=== PATIENT | female | born 1990 | race Caucasian/White ===

== ENCOUNTER 2025-03-19 16:38 | Emergency (ER) | payer BC, SELFPAY ==
--- OUTSIDE RECORDS SUMMARY | 2025-03-05 20:45 | XMS_ITS | Encounter Summary ---
Author Organization [employer] Address [address] [place] [address] Care Team Providers Care Manager Combination Name Role Phone Jahaira Ag PA-C Primary Care Provider + [phone] Reason for Visit * Reason Comments Medication Questions Entered automatical ly based on patient selection in [employer]. Encounter Details Date Type Department Care Team (Late st Contact Info) Description 03/05/2025 8:45 PM CDT E-Visit [facility] [address] [place] [address] Suki Finney PA-C [id number] [place] [phone] Dx: Class 3 severe obesity due to excess calories without serious comorbidity with body mass index (BMI) of 40.0 to 44.9 in adult (Primary Dx) Social History Tobacco Use Types Packs/Day Years Used Date Smoking Tobacco: Former Cigarettes Smokeless Tobacco: Never Comments:Trying to quit only smoke 3 a day Alcohol Use Standard Drinks/Week Comments Not Currently 0 (1 standard drink = 0.6 oz pur e alcohol) Drink maybe once a year AUDIT-C Answer Date Recorded Q1: How often do you have a drink containing alc ohol? Never 01/04/2021 Average Number of Drinks Not on file 021 Frequency of Binge Drinking Not on file 12/20 PHQ-2 Answer Date Recorded PHQ-2 Score 1 05/10/2024 Financial Resource Strain Answer Date R ecorded Is it hard for you to pay fo r the very basics like food, housing, medical care or heating? No 08/10/2023 Food Insecurity Answer Date Recorded Does your food run out before you have the money to buy more? No 08/10/2023 Transportation Needs Answer Date Record ed Does a lack of transportatio n keep you from your medical appointments or from getting your medications? 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 Not on file Not on file documented as of this encounter Last Filed Vital Signs Vital Sign Reading Time Taken Comments Blood Pressure - - Pulse - - Temperature - - Respiratory Rate - - Oxygen Saturation - - Inhaled Oxygen Concentration - - Weight 86.6 kg (191 lb) 03/07/2025 4:14 PM CDT Height - - Body Mass Index 31.78 12/18/2024 4:25 PM CDT documented in this encounter Plan of Treatment Not on file documented as of this encounter Visit Diagnoses Diagnosis Class 3 severe obesity due to excess calories without serious comorbidity with body mass index (BMI) of 40.0 to 44.9 in adult- Primary documented in this encounter Care Teams Manager Combination Relationship Specialty Start Date End Date Jahaira Ag, [address] [address] [place] [address] PCP - General Physician Review Manager 10/31/19 documented as of this encounter
--- OUTSIDE RECORDS SUMMARY | 2025-03-19 16:40 | XMS_ITS | Continuity of Care Document ---
Author Name [facility] Organization [facility] Care Team Providers Care Research Subject Name Role Phone [facility] Unavailable Unavailable Social History Combined list of available smoking, tobacco, and other social history from Department of Defense and Veterans Affairs facilities. Social History Type Response Date Comment Sourc e This section is an empty social history section. DoD
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
--- OUTSIDE RECORDS SUMMARY | 2025-03-19 16:40 | XMS_ITS | Continuity of Care Document ---
Author Name [facility] Organization [facility] Care Team Providers Care Marine Design Engineer Name Role Phone [facility] Unavailable Unavailable Social History Combined list of available smoking, tobacco, and other social history from Department of Defense and Veterans Affairs facilities. Social History Type Response Date Comment Sourc e This section is an empty social history section. DoD
--- OUTSIDE RECORDS SUMMARY | 2025-03-19 16:40 | XMS_ITS | Clinical Summary ---
Author Organization [employer] [facility] Address [address] [place] [id number] Care Team Providers Care Gluing Pressman Name Role Phone Pcp, No Unavailable Unavailable Jahaira Ag Primary Care Provider [phone] Allergies Active Allergy Reactions Criticality Noted Date Comments Oxycodone-Acetaminophen Itching 01/31/2019 Medications levonorgestrel intrauterine device (MIRENA) 20 mcg/24 hours (7 yrs) 52 mg IUD Inject 1 Each intrauterine. 1 026 Active methylPREDNISolone (Medrol, Talib,) 4 mg tabletIndications: Acute pain of left knee,Knee strain, left, initial encounter Take by mouth as instructed per packaging. 21 Tablet 1 Active albuterol HFA (PRO-AIR; VENTOLIN; PROVENTIL) 90 mcg/actuation inhalerIndications :Bronchitis Inhale 1-2 Puffs by mouth every 4 hours if needed for Shortness of Breath 1st choice or Wheezing. 1 Each 3 Active inhalational spacing deviceIndications: Bronchitis For home use. 1 Each 3 Active ondansetron (ZOFRAN ODT) 8 mg disintegrating tabletIndications: Nausea Place 1 Tablet (8 mg) on the tongue every 8 hours if needed for Nausea/Vomitin g. 5 Tablet 3 Active benzonatate (TESSALON) 200 mg capsuleIndications :Bronchitis Take 1 Capsule (200 mg) by mouth 3 times daily if needed for Cough. 21 Capsule Active Active Problems Problem Noted Date Diagnosed Date Smoker 01/31/2019 Immunizations Immunization Administration Dates Next Due Hepatitis B (Adult) 12/24/2011 Tuberculin (PPD) 12/24/2011 Social History Tobacco Use Types Packs/Day Years Used Date Smoking Tobacco: Some Days Smokeless Tobacco: Never Tobacco Cessation:Ready to Q uit: Yes; Counseling Given: Yes Comments:trying to quit Alcohol Use Standard Drinks/Week Comments Never 0 (1 standard drink = 0.6 oz pur e alcohol) Social Connections Answer Date Recorded Frequency of Communication with Friends and Fami ly Not on file 09/21/2021 Financial Resource Strain Answer Date R ecorded Difficulty of Paying Living Expenses Not on file 09/21/2021 Difficulty of Paying Living Expenses Not on file 09/21/2021 Comments No Sex and Gender Information Value Date Recorded Sex Assigned at Not on file Legal Sex Female 11:09 AM CDT Gender Identity Not on file Sexual Orientation Not on file Obstetrics History Last Filed Vital Signs Vital Sign Reading Time Taken Comments Blood Pressure 124/88 12/10/2022 8:07 AM CDT Pulse 104 12/10/2022 8:07 AM CDT Temperature 35.8 C (96.4 F) 12/10/2022 8:07 AM CDT Respiratory Rate 20 12/10/2022 8:07 AM CDT Oxygen Saturation 96% 12/10/2022 8:07 AM CDT Inhaled Oxygen Concentration - - Weight 104.3 kg (230 lb) 12/10/2022 8:07 AM CDT Height 165.1 cm (5' 5) 12/10/2022 8:07 AM CDT Body Mass Index 38.27 12/10/2022 8:07 AM CDT Plan of Treatment Health Maintenance Due Date Last Done Comments Tdap 02/12/2000 Depression screening for age 12+ 2001 HIV for age 15-65 02/12/2004 Hepatitis C screening for ag e 18-79 2007 Tetanus booster 2009 Pap test for age 21-65 2010 Hepatitis B series for 19+ ( 2 of 3 - 19+ 3-dose series) 01/21/2012 12/24/2011 BMI (ht and wt on same day) for age 18+ 12/11/2023 12/10/2022, 01/31/2019 COVID-19 vaccine series (2023- season) 2024 Influenza Vaccine (Season Ended) 2025 Pneumococcal series for age 6-49 Aged Out No longer eligible b ased on patient's age to complete this topic Insurance [facility] [place]ID [place] [employer] Care Teams Gluing Pressman Relationship Specialty [place] [address] [place] [address] PCP - General Physician Irrigation Manager 08/18/20 Pcp, No . 01/31/19
[2025-03-19 16:50] VITALS: BP 131/83; PULSE 82; RESP 18; TEMP 36.2; O2SAT 98; BMI 31.5
--- NOTE | 2025-03-19 17:20 | CRLHL7_ITS ---
For Patients: As a result of the Cures Act, medical imaging exams and procedure reports are released immediately into your electronic medical record. You may view this report before your referring provider. If you have questions, please contact your health care provider. Indication: Trauma. Technique: Left 2nd digit, 3 views. Comparison: None. Findings/Impression: Bones: Alignment is normal. No displaced fractures or bone lesions. Joint spaces: Unremarkable. Soft tissues: Focal soft tissue laceration. No radiopaque foreign bodies. Dictated by Jb Conner MD @ 03/19/2025 6:10:48 PM (Electronically Signed)
--- NOTE | 2025-03-19 17:27 | ED.GENADULT ---
HPI - General Adult General Chief complaint: Laceration/Wound Stated complaint: L hand LAC Time Seen by Provider: 03/19/25 16:59 Source: patient Mode of arrival: ambulatory Limitations: no limitations History of Present Illness HPI narrative: 35-year-old female presenting today with a laceration to the 2nd digit of the left hand. Patient grabbed loin trimmer when it was still on. She then went to sit down and when she sat down she felt lightheaded, her vision and hearing felt funny and she passed out. She believes she passed out for maybe 40 seconds. She stayed in the chair when this occurred, did not fall or hit her head. When she woke up she was still feeling lightheaded. After sitting in bed for a little bit of time, she does feel better. Per nursing she was looking kind of pale upon arrival, color has now returned to her face. Patient denies palpitations, headaches, previous recent syncopal episodes. Last Tdap in 2019. Related Data Home Medications ?Medication ?Instructions ?Recorded ?Confirmed ondansetron 8 mg disintegrating 4 - 8 mg PO nausea 03/19/25 tablet semaglutide (weight loss) 1 mg/0.5 1 mg subcut 03/19/25 mL subcutaneous pen injector (Wegovy) Allergies Allergy/AdvReac Type Severity Reaction Status Date / Time morphine Allergy Mild itching Verified 03/19/25 16:49 acetaminophen (From Percocet) Allergy itching Verified 03/19/25 16:49 oxycodone (From Percocet) Allergy itching Verified 03/19/25 16:49 Review of Systems Status of ROS: Reports: 10 or more systems reviewed and unremarkable except as noted in History and below Exam Narrative: Exam Narrative: Well-nourished well-developed patient in no acute distress. Alert and oriented. Answers questions appropriately. Mood and affect are appropriate. Thoughts are goal oriented and rational. No tangential or magical thinking noted. Patient speaks in full sentences without needing to catch her breath. HEENT: Normocephalic atraumatic. Pupils are equally round reactive to light. Extraocular muscles are intact. Conjunctivae are moist without any icterus noted. Moist mucous membranes. Patient has normal color. Extremities: Patient has a laceration on the palmar surface of the 2nd digit of the left hand, V shape with a small skin flap, edges of the skin are quite shredded. Const: Vital Signs, click to edit/add: Vital Signs - 24 hr 03/19/25 16:50 Temperature 97.2 F L Pulse Rate [Right Pulse Oximeter] 82 Respiratory Rate 18 Blood Pressure [Ri ght Upper Arm] 131/83 Pulse Oximetry 98 Oxygen Delivery Me thod Room Air Course Course ED Course: Because of her syncopal episode, she did have an EKG done arriving to the ED. Read by me, this shows normal sinus rhythm with sinus arrhythmia, pulse 70. Normal QRS, QTC and AL intervals. Patient had a lot of pain on examination, so a digital block was done with lidocaine and patient proceeded to x-ray. X-ray, read by me, is not show any acute fractures. Finger was soaked and cleaned in the usual sterile manner 4 sutures with 4-0 Ethilon were placed. Vital Signs Vital signs: Initial Vital Signs Temperature 97.2 F L 03/19/25 16:50 Temperature Source Temporal Artery Scan 03/19/25 16:50 Pulse Rate 82 03/19/25 16:50 Respiratory Rate 18 03/19/25 16:50 Blood Pressure 131/83 03/19/25 16:50 Blood Pressure Mean 99 03/19/25 16:50 Blood Pressure Position Sitting 03/19/25 16:50 Pulse Oximetry 98 03/19/25 16:50 Oxygen Delivery Method Room Air 03/19/25 16:50 Vital Signs Temperature 97.2 F L 03/19/25 16:50 Pulse Rate 82 03/19/25 16:50 Respiratory Rate 18 03/19/25 16:50 Blood Pressure 131/83 03/19/25 16:50 Pulse Oximetry 98 03/19/25 16:50 Oxygen Delivery Method Room Air 03/19/25 16:50 Temperature 97.2 F L 03/19/25 16:50 Pulse Rate 82 03/19/25 16:50 Respiratory Rate 18 03/19/25 16:50 Blood Pressure 131/83 03/19/25 16:50 Pulse Oximetry 98 03/19/25 16:50 Oxygen Delivery Method Room Air 03/19/25 16:50 Medical Decision Making MDM Narrative Medical decision making narrative: 35-year-old female laceration to the pointer finger. Treated per above. I do believe her syncopal episode was vasovagal due to the recent injury. No further workup needed. Discharge Plan Discharge Clinical Impression: Laceration Patient Disposition: Home, Self-Care Condition: Stable Additional Instructions: Keep wound clean and dry. Do not soak such as taking baths, swimming or doing dishes. Follow-up in approximately 1 week for suture removal with your primary care provider. Watch for signs and symptoms of infection including increasing redness of the area, purulent drainage, or fever. If this occurs follow-up right away with your doctor or return to the ER. Change dressing daily. Prescriptions: No Action ondansetron 8 mg tablet,disintegrating 4 - 8 mg PO Wegovy 1 mg/0.5 mL pen injector 1 mg subcut Stand Alone Forms: [employer] Info Instructions
--- OUTSIDE RECORDS SUMMARY | 2025-03-19 17:52 | XMS_ITS | Clinical Summary ---
Author Organization [facility] Address [address] [place] [address] Care Team Providers Care Merchant Miller Name Role Phone Jahaira Ag PA-C Primary Care Provider + [phone] Source Comments You are receiving this document as you are listed as the primary care provider,follow-up provider, or the patient has been referred to you for consultation.This is in compliance with the Medicare andMedicaid EHR Incentive Program,which states Providers who transition their patient to another setting of careor provider of care or refers their patient to another provider of care shouldprovide summary care record for each transition of care or referral. [facility] Allergies Active Allergy Reactions Criticality Noted Date Comments Morphine And Codeine Itching High 01/31/2019 Facial itching Oxycodone-Acetaminophen Itching High 07/25/2019 Facial itching Medications levonorgestrel (MIRENA) 20 MCG/24HR IUDIndications:En counter for insertion of intrauterine contraceptive device 1 Each by Intrauterine route continuous. 021 2025 Active ondansetron (ZOFRAN-ODT) 8 MG disintegrating tabletIndications :Nausea Take 0.5-1 Tablets (4-8 mg) by mouth as needed for Nausea. 30 Tablet 1 024 Active ALBUterol sulfate HFA 108 (90 Base) MCG/ACT inhaler Inhale 1-2 Puffs every 4 hours as needed for Wheezing. 1 Each 025 Active semaglutide-weigh t management (WEGOVY) 1 MG/0.5ML pen injectionIndicati ons:Class 3 severe obesity due to excess calories without serious comorbidity with body mass index (BMI) of 40.0 to 44.9 in adult Inject 0.5 mL (1 mg) subcutaneously once a week. 2 mL 5 025 Active semaglutide-weigh t management (WEGOVY) 0.5 MG/0.5ML pen injectionIndicati ons:Encounter for weight management,Class 3 severe obesity due to excess calories without serious comorbidity with body mass index (BMI) of 40.0 to 44.9 in adult Inject 0.5 mL (0.5 mg) subcutaneously once a week. 2 mL 5 025 2024 Discontinued Active Problems Problem Noted Date Diagnosed Date Encounter for weight management 05/10/2024 Class 3 severe obesity due t o excess calories without serious comorbidity with body mass index (BMI) of 40.0 to 44.9 in adult 03/18/2023 Cervical high risk HPV (human papillomavirus) te st positive 11/24/2019 Overview (06/28/2024): From visit on 11/03/19: History of abnormal pap tests? No. CCSM Review: History: 2020: NILM HPV+ (non 16/18) 2023 ASCUS; HPV positive for HPV High Risk Other Than 16/18 34 y.o. Plan: COLP Resolved Problems Problem Noted Date Diagnosed Date Resolved Date Tobacco abuse 11/05/2012 05/10/2024 Encounters Date Type Department Care Team Description 03/05/2025 8:45 PM CDT E-Visit [facility] [address] [place] [phone] Suki Finney PA-C Dx: Class 3 severe obesity due to excess calories without serious comorbidity with body mass index (BMI) of 40.0 to 44.9 in adult (Primary Dx) 01/27/2025 8:40 AM CDT [facility] [place] [id number] [place] [phone] Yessy Irwin APRN, FISHER NET Vaginal itching (Primary Dx) 01/12/2025 1:00 PM CDT E-Visit [facility] [address] [place] [phone] Zina Diggs PA-C Chief Comp: QUESTIONS, GENERAL 01/12/2025 10:30 AM CDT Office Visit [facility] [address] [place] [phone] Zina Diggs PA-C Sternoclavicular joint strain, subsequent encounter (Primary Dx); Acute pain of left shoulder; Worker's compensation claim administrative problem 01/04/2025 Telephone [facility] [address] [place] [phone] Zina Diggs PA-C Orders Needed 12/29/2024 6:10 PM CDT E-Visit [facility] [address] [place] [phone] Suki Finney PA-C Chief Comp: Forms/Letter 12/29/2024 10:15 AM CDT Office Visit [facility] [address] [place] [phone] Zina Diggs PA-C Sternoclavicular joint strain, subsequent encounter (Primary Dx); Acute pain of left shoulder; Worker's compensation claim administrative problem 12/28/2024 Telephone [facility] [address] [place] [phone] Suki Finney PA-C Prior Authorization For Medication (semaglutide-weight management (WEGOVY) 0.5 MG/0.5ML pen injection) 12/27/2024 10:30 AM CDT Ancillary Procedure [facility] [id number] [address] [place] [phone] Zina Diggs PA-C Injury of left clavicle, initial encounter; Worker's compensation claim administrative problem 12/22/2024 10:45 AM CDT Office Visit [facility] [address] [place] [phone] Zina Diggs PA-C Injury of left clavicle, initial encounter (Primary Dx); Acute pain of left shoulder; Worker's compensation claim administrative problem 12/22/2024 Telephone [facility] [address] [place] [phone] Zina Diggs PA-C Prior Authorization Request (Work comp ) 12/22/[address] [phone] Suki Finney PA-C Refill (semaglutide-weight management (WEGOVY) 0.5 MG/0.5ML pen injection) 12/18/2024 4:50 PM CDT Ancillary Procedure Radiology at [address] [phone] Paula Krause PA-C Encounter related to worker's compensation claim; Acute pain of left shoulder 12/18/2024 4:45 PM CDT Ancillary Procedure Radiology at [address] [phone] Paula Krause PA-C Encounter related to worker's compensation claim; Clavicle pain 12/18/2024 4:20 PM CDT Office Visit [address] [phone] Paula Krause PA-C Encounter related to worker's compensation claim (Primary Dx); Clavicle pain; Acute pain of left shoulder 12/18/2024 Results Follow-Up [address] [phone] Paula Krause PA-C from Last 3 Months Immunizations Immunization Administration Dates Next Due 9vHPV (Gardasil 9) 01/04/2021 HepB Adult (Engerix-B, 20+ yrs, 3 dose series) 0 12/24/2011 HepB Adult (Heplisav-B, 19+ yrs, 2 dose series) 08/11/2023 Influenza (Flucelvax), Preserv Free QIV 08/11/20 23 PCV20 ([id number]) 08/11/2023 Tdap 11/03/2019,04/22/2012 Family History Medical History Relation Name Comments High Cholesterol Father Dakota Barron Cancer Mother Haylee Barron Cancer, Breast Mother Haylee Barron Age 51, sti ll in treatment Stroke Mother Haylee Barron Depression Brother Buck Gordon No Known Problems Daughter Otto Diabetes, Type II Maternal Grandfather Angel Gordon Heart Disease Maternal Grandfather Angel Gordon CHF Hypertension Maternal Grandfather Angel Gordon Alzheimer's Maternal Grandmother COPD Maternal Grandmother Diabetes Paternal Grandfather Angel Gordon Heart Disease Paternal Grandfather Angel Gordon High Cholesterol Paternal Grandfather Angel Gordon Hypertension Paternal Grandfather Angel Gordon Stroke Paternal Grandfather Angel Gordon No Known Problems Paternal Grandmother Relation Name Status Comments Father Dakota Barron Alive Mother Haylee Barron Alive breast cancer Brother Buck Gordon Alive Daughter [place] Alive Maternal Grandfather Angel Gordon Maternal Grandmother Paternal Grandfather Angel Gordon Paternal Grandmother Alive Social History Tobacco Use Types Packs/Day Years Used Date Smoking Tobacco: Former Cigarettes Smokeless Tobacco: Never Tobacco Cessation:Counseling Given: Not Answered Comments:Trying to quit only smoke 3 a [...] on file 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 Gender Identity Not on file Sexual Orientation Not on file 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 Not on file Not on file Last Filed Vital Signs Vital Sign Reading Time Taken Comments Blood Pressure 108/54 01/27/2025 8:05 AM CDT Pulse 75 01/27/2025 8:05 AM CDT Temperature 36.9 C (98.4 F) 01/27/2025 8:05 AM CDT Respiratory Rate 20 01/27/2025 8:05 AM CDT Oxygen Saturation 99% 01/27/2025 8:05 AM CDT Inhaled Oxygen Concentration - - Weight 86.6 kg (191 lb) 03/07/2025 4:14 PM CDT Height 165.1 cm (5' 5) 12/18/2024 4:25 PM CDT Body Mass Index 31.78 12/18/2024 4:25 PM CDT Plan of Treatment Health Maintenance Due Date Last Done Comments Hep C Screening (Preventive Services) 1989 HIV Screening (Preventive Services) 2005 HPV Vaccine (2 - 3-dose SCDM series) 02/01/2021 01/04/2021 Adult Preventive Visit 11/03/2021 11/03/2019 HepB Vaccine (3) 10/06/2023 08/11/2023, 12/24/2011 COVID-19 Vaccine ( - 2023- season) 2024 Influenza Vaccine (Season Ended) 2025 08/11/2023 Cervical Cancer Screening 06/09/20252023, 06/09/2024, 11/15/2019, Additional history exists Diabetes Screening- (based on age and BMI) 03/18/2026 03/18/2023, 11/03/2019 DTaP/Tdap/Td Vaccine (3 - Tdap) 11/03/2029 11/03/2019, 04/22/2012 Zoster/Shingles Vaccine (1 of 2) 2039 Pneumococcal Vaccine Aged Out 08/11/2023 No long er eligible based on patient's age to complete this topic HepA Vaccine Aged Out No longer eligi ble based on patient's age to complete this topic Hib Vaccine Aged Out No longer eligi ble based on patient's age to complete this topic IPV (Polio) Vaccine Aged Out No longe r eligible based on patient's age to complete this topic MCV4 Vaccine Aged Out No longer eligi ble based on patient's age to complete this topic Meningococcal B Vaccine Aged Out No l onger eligible based on patient's age to complete this topic Procedures Procedure Name Priority Date/Time Associated Diagnosis Comments VAGINITIS PANEL Routine 01/27/2025 8:27 AM CDT Vaginal itching MYCOPLASMA GENITALIUM RNA, TMA Routine 01/27/2025 8:27 AM CDT Vaginal itching MR CHEST WO IV CONT Routine 12/27/2024 1 1:03 AM CDT Injury of left clavicle, initial encounter Worker's compensation claim administrative problem XR SHOULDER LT AP/Y/AXILLARY STAT 12/18/2024 4:57 PM CDT Encounter related to worker's compensation claim Acute pain of left shoulder XR CLAVICLE BILAT STAT 12/18/2024 4:5 6 PM CDT Encounter related to worker's compensation claim Clavicle pain HPV WITH 16 18 GENOTYPING, CERVICAL/ENDOCERVIC AL Routine 06/09/2024 9:30 AM CDT Special screening examination for human papillomavirus (HPV) HGB A1C Routine 03/18/2023 4:22 PM CDT Class 2 obesity with body mass index (BMI) of 39.0 to 39.9 in adult, unspecified obesity type, unspecified whether serious comorbidity present (HRC) from Last 3 Months or Most Recently Relevant to Health Maintenance Results * Vaginitis Panel (01/27/2025 8:27 AM CDT) Bacterial Vaginosis Negative Negative 01/27/2025 3:32 PM CDT [facility] Priya species Negative Negative 3:32 PM CDT [facility] Priya glabrata Negative Negative 01/27/2025 3:32 PM CDT [facility] Trichomonas vaginalis Negative Negative 01/27/2025 3:32 PM CDT [facility] Swab STD SPECIMEN FROM VAGINA / Unknown Non-blood Collection / Unknown 01/27/2025 8:27 AM CDT 01/27/2025 8:46 AM CDT [facility] - 01/27/2025 3:32 PM CDT Test performed by Cotton Stomper Mediated Amplification (TMA). Yessy Irwin APRN, CNP LAB_1 Final Result Performing Organization Address [facility] Co de Phone Number [facility] [address] * Mycoplasma genitalium by TMA (01/27/2025 8:27 AM CDT) Pathologist [facility] Mycoplasma genitalium Interpretation Not Detected Not Detected 01/30/2025 12:17 PM CDT [facility] Swab STD SPECIMEN FROM VAGINA / Unknown Non-blood Collection / Unknown 01/27/2025 8:27 AM CDT 01/27/2025 8:46 AM CDT [facility] - 01/30/2025 12:17 PM CDT Test performed by Cotton Stomper Mediated Amplification (TMA). Yessy Irwin APRN, CNP LAB_1 Final Result Performing Organization Address [facility] Co de Phone Number [facility] [address] * MR Chest WO IV Cont (12/27/2024 11:03 AM CDT) Anatomical Region Laterality Modality Chest, Lung, MSK Magnetic Resona nce 12/27/2024 10:2 0 AM CDT Impressions 12/27/2024 12:41 PM CDT 1. No fracture identified. 2. Mild edema surrounding the sternoclavicular joint suspicious for a low-grade capsular sprain. Narrative 12/27/2024 12:41 PM CDT COMPARISON: 12/18/2024 TECHNIQUE: Multisequence multiplanar MR imaging performed through the left clavicle. FINDINGS: No fracture identified. Normal alignment at the acromioclavicular joint and sternoclavicular joint. There is very mild edema surrounding the sternoclavicular joint capsule without a significant effusion. No erosive changes. Marrow signal elsewhere is also normal. No lymphadenopathy. The visualized muscles appear unremarkable. Procedure Note Aditya Rubio MD - 12/27/2024 COMPARISON: 12/18/2024 TECHNIQUE: Multisequence multiplanar MR imaging performed through the leftclavicle. FINDINGS: No fracture identified. Normal alignment at theacromioclavicular joint and sternoclavicular joint. There is very mildedema surrounding the sternoclavicular joint capsule without a significanteffusion. No erosive changes. Marrow signal elsewhere is also normal. Nolymphadenopathy. The visualized muscles appear unremarkable. IMPRESSION 1. No fracture identified. 2. Mild edema surrounding the sternoclavicular joint suspicious for alow-grade capsular sprain. us Zina Diggs PA-C RAD MRI Final Result * XR Shoulder Lt AP/Y/Axillary (12/18/2024 4:57 PM CDT) Anatomical Region Laterality Modality Upper Extremity, Shoulder Digita l Radiography 12/18/2024 4:57 PM CDT Narrative 12/18/2024 5:05 PM CDT EXAM: XR SHOULDER LT AP/Y/AXILLARY LOCATION: [facility] DATE: 12/18/2024 INDICATION: Left shoulder pain, Encounter for examination for insurance , Pain in left shoulder, PAIN COMPARISON: None. IMPRESSION: Normal joint spaces and alignment. No fracture. Procedure Note Jerald Enriquez MD - 12/18/2024 EXAM: XR SHOULDER LT AP/Y/AXILLARY LOCATION: [facility] DATE: 12/18/2024 INDICATION: Left shoulder pain, Encounter for examination for insurance ,Pain in left shoulder, PAIN COMPARISON: None. IMPRESSION: Normal joint spaces and alignment. No fracture. us Paula Krause PA-C RAD GD Final Result * XR Clavicle Bilat (12/18/2024 4:56 PM CDT) Anatomical Region Laterality Modality Upper Extremity, Chest, Shoulder Digital Radiography 12/18/2024 4:56 PM CDT Narrative 12/18/2024 5:06 PM CDT EXAM: XR CLAVICLE BILAT LOCATION: [facility] DATE: 12/18/2024 INDICATION: Pain COMPARISON: None. IMPRESSION: There is mild asymmetry seen involving the AC joints. The right clavicle is approximately 5.1 mm superiorly displaced in relationship to the acromion. Both clavicles are otherwise normal. Procedure Note Jerald Enriquez MD - 12/18/2024 EXAM: XR CLAVICLE BILAT LOCATION: [facility] DATE: 12/18/2024 INDICATION: Pain COMPARISON: None. IMPRESSION: There is mild asymmetry seen involving the AC joints. Theright clavicle is approximately 5.1 mm superiorly displaced inrelationship to the acromion. Both clavicles are otherwise normal. Paula Krause PA-C RAD GD Final Result * (ABNORMAL) HPV Genotyping PCR (Cervical/Endocervical ONLY) (06/09/2024 9:30 AM CDT) Pathologist [facility] HPV High Risk Type 16 PCR Not Detected Not detected 06/28/2024 11:00 AM CDT [facility] HPV High Risk Type 18 PCR Not Detected Not Detected 06/28/2024 11:00 AM CDT [facility] HPV High Risk Other Than 16/18 Detected(A) Not detected 06/28/2024 11:00 AM T [facility] Cervical Broom ENTIRE ENDOCERVIX / Unknown 06/09/2024 9:30 AM CDT 06/09/2024 9:43 AM CDT Suki Finney PA-C LAB_1 Final Resul t [address] [address], [facility] * Hgb A1C (03/18/2023 4:22 PM CDT) Pathologist [facility] Hemoglobin A1C 5.3 <=5.6 % 03/18/2023 9:58 PM CDT [facility] Estimated Average Glucose (Calc) 105 < 117 mg/dL 03/18/2023 9:58 PM CDT [facility] Comment:Estimated average gl ucose (eAG) converts A1c into glucose units (mg/dL) and estimates average glucose over the past approximately 3 months. The eAG reference interval (<117 mg/dL) corresponds to an A1c of <5.7%. Blood Venipuncture / Unknown 03/18/2023 4:22 PM CDT 03/18/2023 4:22 PM CDT us Suki Finney PA-C LAB_1 Final Resul t [facility] [address] [address], [facility] [phone] from Last 3 Months or Most Recently Relevant to Health Maintenance Insurance [facility] Care Teams Merchant Miller Relationship Specialty Start Date End Date Jahaira Ag PA-C [address] [place], [place] [phone] PCP - General Physician Survey Associate 10/31/19
--- OUTSIDE RECORDS SUMMARY | 2025-03-19 17:52 | XMS_ITS | Encounter Summary ---
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
--- OUTSIDE RECORDS SUMMARY | 2025-03-19 17:52 | XMS_ITS | Encounter Summary ---
Author Organization [facility] Address [address] [place] [address] Care Team Providers Care Apiculture Teacher Name Role Phone Jahaira Ag PA-C Primary Care Provider + [phone] Reason for Visit * Reason Comments Prior Authorization For Medication semag lutide-weight management (WEGOVY) 0.5 MG/0.5ML pen injection Encounter Details Date Type Department Care Team (Late st Contact Info) Description 12/28/2024 Telephone [facility] [address] [place] [phone] Suki Finney PA-C [id number] [place] [phone] Prior Authorization For Medication (semaglutide-weight management (WEGOVY) 0.5 MG/0.5ML pen injection) Social History Tobacco Use Types Packs/Day Years [...] on file 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 Pharmacy has been notified. Rozina Del Cid LPN * Mahduri Capellan - 12/28/2024 8:54 AM CDT Images from the original note were not included. Prior authorization has been initiated for semaglutide-weight management (WEGOVY) 0.5 MG/0.5ML pen injection . documented in this encounter Plan of Treatment Not on file documented as of this encounter Visit Diagnoses Not on filedocumented in this encounter Care Teams Apiculture Teacher Relationship Specialty Start Date End Date Jahaira Ag PA-C [address] [place] [address] PCP - General Physician Business Relationship Manager 10/31/19 documented as of this encounter
[2025-03-19 18:15] VITALS: BP 132/81; PULSE 80; RESP 16; O2SAT 99
== END 2025-03-19 18:17 | disposition home or self-care (01) ==
PROVIDERS: Emergency Provider Family Medicine
DX: S61.211A Laceration without foreign body of left index finger without damage to nail, initial encounter (principal); W29.3XXA Contact with powered garden and outdoor hand tools and machinery, initial encounter
CPT/HCPCS: 12001; 73140; 99283; 99284